=== PATIENT | male | born 1960 | race Caucasian/White ===

== ENCOUNTER 2023-11-21 12:59 | Outpatient (CLI) | payer OTHER, SELFPAY ==
--- NOTE | ~2023-11-21 | CT_ITS ---
EXAMINATION:CT lung screening DATE: 11/21/2023 13:33 INDICATION: Personal history of nicotine dependence. Current smoker with 52 pack year history. TECHNIQUE: Computed tomography (CT) of the chest was performed without intravenous contrast. Automate d exposure control and iterative reconstruction technique were employed. The dose-length product (DLP ) was 95.04 mGy-cm. COMPARISON: None. FINDINGS: There is moderate emphysema. A calcified right lung nodule and calcified right hilar lymph nodes are consistent with old granulomatous disease. There is a 3 mm nodule at minor fissure. There i s mild scarring at the lung apices. No pleural effusion. The heart size is normal. There are coronary artery calcifications. No pericardial effusion. 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 There is mild chronic anterior wedging of multiple vertebral bodies. There is severe cervical spon dylosis and mild thoracic spondylosis. IMPRESSION: 1. Lung-RADS category 2: Benign appearance or behavior. Continue annual screening with noncontrast lo w-dose chest CT in 12 months. Reviewed, dictated and finalized at location A. IMPRESSION: 1. Lung-RADS category 2: Benign appearance or behavior. Continue annual screeni ng with noncontrast low-dose chest CT in 12 months.
== END 2023-11-21 13:00 | disposition home or self-care (01) ==
PROVIDERS: PCP Emergency Medicine; Visit Provider Physician Assistant
DX: Z12.2 Encounter for screening for malignant neoplasm of respiratory organs (principal); Z87.891 Personal history of nicotine dependence
CPT/HCPCS: 71271